=== PATIENT | female | born 1980 | race Two or more races ===

== ENCOUNTER 2024-05-07 16:19 | Emergency (ER) | payer MEDICAID, SELFPAY ==
[2024-05-07 16:25] VITALS: BP 122/81; PULSE 101; RESP 18; TEMP 36.7; O2SAT 99; BMI 24.7
--- NOTE | 2024-05-07 16:42 | XR_ITS ---
Examination: CT abdomen with intravenous contrast CT pelvis with intravenous contrast 2-D coronal reconstructions 2-D sagittal reconstructions Date and time of exam:May 07, 2024 at 04 hours Comparison April 12, 2021 Indications: Right upper abdominal pain beginning 2 weeks ago. CTDI: vol (mGy) 6.62 DLP: (mGycm) 307 Technique: Multiple axial sections of the abdomen and pelvis have been obtained. 64 slice high-resolution scanner used. 3 mm axial sections have been obtained, post intravenous injection 60 cc [id number] 2-D sagittal, coronal reconstructions obtained. Low dose protocols were performed. One or more of the following dose reduction techniques were used; automated exposure control, adjustment of the mA and/or KV according to patient size, use of iterative reconstruction technique. Findings: No focal liver or splenic lesions Absent gallbladder Normal common bile duct stones No pancreatic mass or edema No hydronephrosis or ureteral calculi Aorta normal size Absent appendix No bowel obstruction No diverticulitis, scattered diverticulosis is present Absent uterus No adnexal mass Contracted urinary bladder The osseous structures are intact Impression: Absent gallbladder Normal common bile duct stones, given the patient's presentation, consider hepatobiliary sonography follow-up Absent appendix Moderate diverticulosis, no diverticulitis
--- NOTE | 2024-05-07 16:45 | EDNOTE_ITS ---
<Statement entered by Suellen Reza MD - 05/08/24 19:21> As co-signing physician, I was present and available for consult prn. I concur with the plan and care as documented by the midlevel provider. ED Female Urogenital RME/HPI General Chief complaint: Urogenital-Female Stated complaint: UTI SYMPTOMS Time Seen by Provider: 05/07/24 16:35 Arrival date/time: 05/07/24 16:19 RME / HPI RME / HPI Narrative: 44-year-old female patient with history of recent UTI, came in for evaluation regarding dysuria, frequency, lower abdominal pain, severity moderate. Patient was having the symptoms for more than a week now. Was treated with Macrobid last week already finished the medication. Denies any vomiting denies any fever denies any other complaints no medication was taken prior to arrival. Related Data Home Medications ?Medication ?Instructions ?Recorded ?Confirmed No Known Home Medications 04/29/23 04/29/23 Allergies Allergy/AdvReac Type Severity Reaction Status Date / Time Penicillins Allergy Unknown ITCHING Verified 04/29/23 10:00 Review of Systems Review of Systems Narrative Review of Systems: Review of system reviewed and within normal limits except mentioned in HPI ED Exam Narrative Physical exam: VITAL SIGNS: Reviewed. GENERAL APPEARANCE: Alert and interactive, follows commands, no acute distress, HEAD AND FACE: Non-traumatic. ENT: PERRL, pink conjunctivitis, eyelid no trauma, Mucous membrane moist. NECK: Supple, nontender, no nuchal rigidity. CHEST: No tenderness, no crepitus, no paradoxical movement, no retractions. LUNGS: Clear, well ventilated, symmetric, no rales, no wheezing, no ronchi, no stridor, good breath sounds bilaterally. HEART: Regular rate, regular rhythm, no murmur, no gallops. ABDOMEN: Soft, positive bowel sounds, nondistended, no guarding, lower abdominal tenderness, no rebound, no masses, RECTAL: Deferred. GENITAL: Deferred. NEUROLOGICAL: Gross motor function intact sensory function intact, Appropriate for age. MUSCULOSKELETAL: low back nontender, full range of motion. EXTREMITIES: Nontender, full range of motion. SKIN: Color pink, dry, no rash, no lacerations, no abrasions, no contusions. LYMPHATICS: Deferred. Course Quality Measures none Orders Category Date Time Status CT Screening NOW Care 05/07/24 16:[address] abdomen pelvis w con Stat Exams 05/07/24 16:42 Completed EKG (ED Only) Stat Exams 05/07/24 16:42 Stop Req CBC Stat Lab 05/07/24 16:56 Completed Comprehensive Metabolic Panel Stat Lab 05/07/24 16:56 Completed Lipase Stat Lab 05/07/24 16:56 Completed Partial Thromboplastin Time Stat Lab 05/07/24 16:56 Completed Prothrombin Time with INR Stat Lab 05/07/24 16:56 Completed UA [Urinalysis] Stat Lab 05/07/24 17:08 Completed Ketorolac Inj [Toradol Inj] Med 05/07/24 16:44 Discontinued 30 mg IVP X1 ONE Vital Signs Vital signs: Vital Signs Temperature 98.1 F 05/07/24 16:25 Pulse Rate 101 H 05/07/24 16:25 Respiratory Rate 18 05/07/24 16:25 Blood Pressure 122/81 05/07/24 16:25 Pulse Oximetry (%) 99 05/07/24 16:25 Oxygen Delivery Method Room Air 05/07/24 16:25 Urogenital - Female MDM Narrative MDM Narrative:: 44-year-old female patient with history of recent UTI, came in for evaluation regarding dysuria, frequency, lower abdominal pain, severity moderate. Patient was having the symptoms for more than a week now. Was treated with Macrobid las t week already finished the medication. Denies any vomiting denies any fever denies any other complaints no medication was taken prior to arrival. Laboratory workup all came back unremarkable including urinalysis which is normal. No UTI. CT scan of the abdomen and pelvis came back unremarkable. Patient data External records reviewed:: None Clinical information provided by:: patient Social determinants that could affect healthcare access:: none Patient has the following chronic illnesses:: None How is presenting disease/condition affected by chronic disease/condition?: no chronic disease Evaluation data The following diagnostics were reviewed and interpreted by me:: lab results and radiology exam(s) Lab and/or radiology exams considered but not ordered:: None Interpretation Summary: Laboratory workup all came back normal no UTI, CT scan of the abdomen and pelvis also came back unremarkable. Results discussed with the patient Medications / Prescriptions Medications or Prescriptions considered but not ordered:: None Medication administrations:: Medication Administration History Discontinued Medications Ketorolac Tromethamine (Ketorolac Inj 30 Mg/Ml Vial) 30 mg IVP X1 ONE Stop: 05/07/24 16:45 Last Admin: 05/07/24 18:11 Dose: 30 mg Documented By: JUAN CARLOS Toradol IV. Consultations Consultation(s) initiated? (list below): No Diagnosis Urogenital Female Differential Diagnosis: urinary tract infection and other (Dysuria, interstitial cystitis) Most likely diagnosis given after review of the tests above:: Dysuria Admission Indicated Admission indicated?: not indicated Admission Request Was there a request for admission?: No Disposition Plan Disposition Plan: Discharge Discharge Attestation Discharge Attestation: The patient was given an opportunity to ask questions and understood the discharge instructions. Discharge instructions specifically effects, indications for sooner follow up or return to the emergency department, and the expected course of current diagnosis. Patient condition: Stable Discharge Plan Plan Patient Disposition: HOME (Self Care) Disposition Comment: stable Prescriptions/Referrals Prescriptions/Med Rec: No Action No Known Home Medications Referrals: Reno Taylor [Primary Care Provider] - In 1 week Problem List Clinical Impression: Dysuria Patient/Caregiver Discharge Instructions Discharge Activity: activity as tolerated Education Materials: ED Dysuria, Uncertain Cause (Adult) Additional Instructions: Thank you for the opportunity for serving you today. You are stable for discharged . You are advised to: Follow-up with your PCP in 1 to 2 days as per referral to urologist Return to ED for worsening of symptoms Increase oral fluids Try to exercise, change her diet to low acidic diet, increase oral fluid and try to avoid stress Print Language: Tamazight Stand Alone Forms: Lillian Award Info., Patient Portal Info Letter HAYLEE/DEANDRE Supervising Physician HAYLEE/DEANDRE Supervising Physician: MD Juaquin
--- NOTE | 2024-05-07 16:52 | PC.NURSE ---
Pt states she does not have chest pain or discomfort and does not want an EKG done.
[2024-05-07 17:02] LABS: Basophils % (Auto) 0 % (0-2.5); Eosinophils # (Auto) 0.1 Thou/mm3 (0.0-0.5); Eosinophils % (Auto) 1 % (0-10); Hematocrit 38.8 % (36.0-46.0); Hemoglobin 13.2 g/dL (12.0-16.0); Immature Granulocytes % (Auto) 0 % (0-0); Immature Granulocytes Auto 0.02 Thou/mm3 (0.00-0.00); Lymphocytes # (Auto) 2.7 Thou/mm3 (1.0-4.8); Lymphocytes % (Auto) 34 % (10-50); Mean Corpuscular Hemoglobin 28.1 pg (25.0-35.0); Mean Corpuscular Volume 83 fL (80-100); Monocytes # (Auto) 0.5 Thou/mm3 (0.0-0.8); Monocytes % (Auto) 6 % (0-12); Neutrophils # (Auto) 4.5 Thou/mm3 (1.8-7.7); Neutrophils % (Auto) 58 % (37-80); Nucleated Red Blood Cell % 0 /100 WBC (0); Platelet Count 226 Thou/mm3 (140-440); RDW Standard Deviation 38.6 fL (36.4-46.3); White Blood Count 7.8 Thou/mm3 (3.6-11.0)
[2024-05-07 17:16] LABS: INR 0.9 (0.9-1.3); Partial Thromboplastin Time 24.9 Seconds (22.0-36.0); Prothrombin Time 10.4 Seconds (9.0-12.2)
[2024-05-07 17:17] LABS: Collection Type, Urine Clean Catch; RBC,Urine 0 /hpf (0-3)
[2024-05-07 17:23] LABS: Bilirubin,Urine Negative (Negative); Blood,Urine 1+ (Negative); Clarity,Urine Clear (Clear/Hazy); Color,Urine Lt-Yellow (Lt Yel-Yel); Glucose, Urine Negative (Negative); Ketones,Urine Negative (Negative); Leukocyte Esterase,Urine Negative (Negative); Nitrite,Urine Negative (Negative); PH,Urine 6.5 (5.0-7.0); Protein,Urine Negative (Neg - Trace); Specific Gravity,Urine 1.004 (1.001-1.035); Squamous Epithelial Cell,Urine < 1 /hpf (0-5); Urobilinogen,Urine Negative mg/dL (0.0-1.0); WBC,Urine < 1 /hpf (0-5)
[2024-05-07 17:24] LABS: Alanine Aminotransferase 17 U/L (10-49); Albumin/Globulin Ratio 1.9 (1.2-2.2); Alkaline Phosphatase 91 U/L (46-116); Anion Gap 5 (7-16); Aspartate Amino Transferase 10 U/L (0-34); BUN/Creatinine Ratio 15 Ratio (12-20); Bilirubin,Total 0.3 mg/dL (0.3-1.2); Blood Urea Nitrogen 12 mg/dL (9-23); Calcium 9.8 mg/dL (8.3-10.6); Calcium (Corrected) 9.8 mg/dL (8.5-10.1); Carbon Dioxide 28.3 mMol/L (20.0-31.0); Chloride 106 mMol/L (98-107); Creatinine (Component) 0.8 mg/dL (0.6-1.3); Estimated Creatinine Clearance 78.8 mL/min (>60); Globulin 2.6 gm/dL (2.3-3.5); Glucose 97 mg/dL (74-106); Lipase 60 U/L (12-53); Osmolality,Calculated 277 (275-295); Potassium 3.8 mMol/L (3.4-5.1); Sodium 139 mMol/L (136-145); Total Protein 7.6 gm/dL (5.7-8.2); eGFR > 60 See Note
[2024-05-07] MEDS: KETOROLAC INJ 30 MG/ML VIAL IVP (18:11)
== END 2024-05-07 20:43 | disposition home or self-care (01) ==
PROVIDERS: Nurse Practitioner Family; Emergency Provider Emergency Medicine; PCP Internal Medicine
DX: R30.0 Dysuria (principal)
CPT/HCPCS: 36415; 74177; 80053; 81001; 83690; 85025; 85610; 85730; 93005; 96374; 99285; A4649; J1885; Q9967

== ENCOUNTER → 2024-09-21 | Outpatient (CLI) | payer BC, SELFPAY ==
--- NOTE | 2024-09-21 13:30 | XR_ITS ---
Examination: Retroperitoneal ultrasound, complete Technique: Multiple high resolution grayscale images of the retroperitoneum obtained, including kidneys and bladder. Exam date and time:September 13, 2024 at 1357 hours INDICATIONS: Pelvic pain beginning several months ago FINDINGS: Right kidney 10.7 cm renal cortex 1.3 cm Left kidney 10.6 cm renal cortex 1.5 cm Mild bilateral renal parenchymal scar formation No hydronephrosis No bladder mass or bladder calculi. Bladder prevoid volume 405 cc postvoid volume 22 cc IMPRESSION: Mild bilateral renal parenchymal scar formation
== END | disposition home or self-care (01) ==
PROVIDERS: PCP Physician Assistant; Referring Provider Physician Assistant; Visit Provider Physician Assistant
DX: N28.89 Other specified disorders of kidney and ureter (principal)
CPT/HCPCS: 76770

== ENCOUNTER → 2024-10-29 | Outpatient (BNVA) | payer BC, SELFPAY | END | disposition home or self-care (01) | PROVIDERS: PCP Internal Medicine; Referring Provider Internal Medicine; Visit Provider Urology | DX: G89.4 Chronic pain syndrome (principal); R10.2 Pelvic and perineal pain; R35.0 Frequency of micturition; M54.50 Low back pain, unspecified; R31.29 Other microscopic hematuria | CPT/HCPCS: 81003; 99203; G0463 ==

== ENCOUNTER → 2025-02-23 | Outpatient (CLI) | payer BC, SELFPAY ==
[2025-02-23 09:35] LABS: Collection Type, Urine Clean Catch
[2025-02-23 10:24] LABS: Bilirubin,Urine Negative (Negative); Blood,Urine 1+ (Negative); Clarity,Urine Clear (Clear/Hazy); Color,Urine Colorless (Lt Yel-Yel); Glucose, Urine Negative (Negative); Ketones,Urine Negative (Negative); Leukocyte Esterase,Urine Negative (Negative); Nitrite,Urine Negative (Negative); PH,Urine 6.5 (5.0-7.0); Protein,Urine Negative (Neg - Trace); RBC,Urine 5 /hpf (0-3); Specific Gravity,Urine 1.010 (1.001-1.035); Squamous Epithelial Cell,Urine 1 /hpf (0-5); Urobilinogen,Urine Negative mg/dL (0.0-1.0); WBC,Urine < 1 /hpf (0-5)
== END | disposition home or self-care (01) ==
LOC: SLDO 09:28
PROVIDERS: Referring Provider Urology; Visit Provider Urology
DX: R82.90 Unspecified abnormal findings in urine (principal)
CPT/HCPCS: 81001

== ENCOUNTER → 2025-03-08 | Outpatient (BNVA) | payer BC, SELFPAY | END | disposition home or self-care (01) | PROVIDERS: PCP Physician Assistant; Referring Provider Physician Assistant; Visit Provider Urology | DX: R10.20 Pelvic and perineal pain unspecified side (principal); R31.29 Other microscopic hematuria; R35.0 Frequency of micturition; R30.0 Dysuria | CPT/HCPCS: 81003; 99213; G0463 ==

== ENCOUNTER 2025-04-14 08:10 | Day surgery (SDC) | payer BC, SELFPAY ==
[2025-04-13 12:17] VITALS: BMI 23.9
[2025-04-13 13:27] LABS: Anion Gap 8 (7-16); BUN/Creatinine Ratio 11 Ratio (12-20); Blood Urea Nitrogen 9 mg/dL (9-23); Calcium 9.4 mg/dL (8.3-10.6); Carbon Dioxide 26.9 mMol/L (20.0-31.0); Chloride 107 mMol/L (98-107); Creatinine (Component) 0.8 mg/dL (0.6-1.3); Estimated Creatinine Clearance 71.9 mL/min (>60); Glucose 95 mg/dL (74-106); Osmolality,Calculated 281 (275-295); Potassium 3.9 mMol/L (3.4-5.1); Sodium 142 mMol/L (136-145); eGFR > 60 See Note
--- NOTE | 2025-04-13 15:05 | SUR.PREOP ---
Pt notified to come in at 1000 tomorrow.
[2025-04-14] VITALS (9 sets, daily range): BP systolic 96–119; BP diastolic 65–84; PULSE 68–93; RESP 13–22; TEMP 36.6–36.9; O2SAT 97–100; BMI 23.7
--- NOTE | 2025-04-14 08:42 | CHAP ---
Visited briefly with patient and gave encouragement and prayer.
--- NOTE | 2025-04-14 10:55 | SUR.PHASEI ---
pt received from OR in recovery bay 5. pt obtunded, breathing unlabored on 2l nc, lma in place. v/s stable. luis cath in place. report received from Sean MINA and Dr. Mclean.
--- NOTE | 2025-04-14 10:58 | PD.SUROPNT ---
Date of Procedure 04/14/25 Pre Op Diagnosis Chronic pelvic pain syndrome, recurrent UTI, Post Op Diagnosis Same plus urethral stenosis plus interstitial cystitis bladder ulcers and bladder neck polyps Procedure Cystoscopic examination and [place] dilation for diagnostic and therapeutic purposes biopsy and fulguration fulguration of bladder ulcers and bladder neck polyps and urethral dilation Findings Interstitial cystitis, bladder ulcers, bladder neck polyps and urethral stenosis Procedure Description Indication for procedure this is a 45-year-old female she is seen in urology office she has suprapubic pressure and incomplete bladder emptying frequency urgency and a history of recurrent UTI patient was recommended above procedure procedure and complications were discussed with patient in great detail informed consent is obtained Patient was brought to the operating room in a satisfactory condition after appropriate premedication she was put on the operating table in a spine position she was appropriately identified by surgeon and operating room staff site scope and indications of procedure were reconfirmed with the patient general anesthesia was given uneventfully patient was positioned in a dorsolithotomy position she received perioperative antibiotics The patient received 160 mg Gentamicin IV. The patient was prepped in a sterile manner. Local anesthetic was placed in the urethra. Cystoscopy was then performed. The urethra had bladder neck polyps. Examination of the bladder revealed no evidence of cancerous lesions, papillary or polyp type, lesions or stones. Bladder was filled with 350 cc of water drained cystoscopy was done again there was evidence of interstitial cystitis with the satellite hemorrhages and bladder ulcers biopsy was obtained fulguration was carried out fulguration of bladder neck polyps were carried out infection can cause polyps and polyps also can cause infection. Both ureters were putting out clear urine. The urethra had mid urethral stenosis and the urethra was dilated up to 30Fr with dilators. The bladder was completely drained and the scope was removed. #16 Goldsmith catheter was inserted the patient tolerated the procedure well. Post-op instructions were given. The patient is to call the office should any problems occur. Follow-up appointment in urology office for biopsy report is given Anesthesia GETA Pathology / specimen Other (Bladder biopsy) Estimated Blood Loss 0.5 Condition Stable Disposition PACU Surgeon Cami Fowler MD Surgical Staff Operation Date: 04/14/25 09:45 Case Staff Anesthesiologist: Leon Mclean
--- NOTE | 2025-04-14 11:32 | SUR.PHASEII ---
pt able to tolerate oral fluids without difficulty swallowing or nausea/vomiting.
--- NOTE | 2025-04-14 12:20 | SUR.PHASEII ---
1145: pt awake, alert, able to follow commands, breathing unlabored, VS stable, report from Darren MINA 1220: pt awake, alert, able to follow commands, breathing unlabored, VS stable, discharge instructions given with spouse present using in house stone belt sander Imani, all questions answered, pt and spouse verbalize understanding of discharge instructions, pt able to ambulate with steady gait to wheelchair, pt discharged via wheelchair with all belongings and copies of discharge paperwork.
== END 2025-04-14 12:20 | disposition home or self-care (01) ==
PROVIDERS: Anesthesiology; PCP Physician Assistant; Referring Provider Urology; Visit Provider Urology
PROC: 0T7B8ZZ Dilation of Bladder, Via Natural or Artificial Opening Endoscopic (ICD-10-PCS; CPT 52281; principal; 2025-04-14 09:30)
DX: N30.10 Interstitial cystitis (chronic) without hematuria (principal); Z87.440 Personal history of urinary (tract) infections; D41.4 Neoplasm of uncertain behavior of bladder; N35.92 Unspecified urethral stricture, female
CPT/HCPCS: 52281; 36415; 80048; A4217; A4649; J1100; J1580; J2704; J2765; J3010; J3490